=== PATIENT | male | born 1965 | race Caucasian/White ===

== ENCOUNTER 2022-06-13 15:01 | Outpatient (CLI) | payer OTHER | END 2022-06-13 15:02 | disposition home or self-care (01) | LOC: TBSIIMAG 15:01 | PROVIDERS: ATTEND Orthopaedic Surgery | DX: S46.011A Strain of muscle(s) and tendon(s) of the rotator cuff of right shoulder, initial encounter (principal); M19.011 Primary osteoarthritis, right shoulder ==

== ENCOUNTER 2023-11-19 12:08 | Day surgery (SDC) | payer OTHER ==
[2023-11-15 15:27] VITALS: BMI 29.0
[2023-11-19] MEDS ORDERED: Lidocaine 1% PF 5 ML VIAL ONE (14:00)
[2023-11-19] MEDS ORDERED: Ondansetron PF 4 MG/2 ML Vial ONE (14:00)
[2023-11-19] MEDS ORDERED: PROPOFOL 200 MG/20 ML VIAL ONE (14:00)
[2023-11-19] MEDS ORDERED: Dexamethasone 20 MG/5 ML VIAL ONE (14:00)
[2023-11-19 15:12] LABS: Anion Gap 10 mmol/L (10-20); BUN (Urea Nitrogen) 18 mg/dL (8.4-25.7); Calc. Creatinine Clearance 137 mL/min (70-130); Calcium 8.9 mg/dL (7.8-10.44); Carbon Dioxide 25 mmol/L (22-29); Chloride 111 mmol/L (98-107); Estimated GFR 105; Glucose 112 mg/dL (70-105); Potassium 4.5 mmol/L (3.5-5.1); Sodium 141 mmol/L (136-145)
[2023-11-19] MEDS ORDERED: hydrALAZINE 20 MG/ML VIAL ONE (15:28)
== END 2023-11-19 16:21 | disposition home or self-care (01) ==
LOC: MRI 12:08
PROVIDERS: ATTEND Pediatrics
DX: M75.101 Unspecified rotator cuff tear or rupture of right shoulder, not specified as traumatic (principal); I10 Essential (primary) hypertension; F41.9 Anxiety disorder, unspecified; F90.9 Attention-deficit hyperactivity disorder, unspecified type; G47.33 Obstructive sleep apnea (adult) (pediatric); Z79.899 Other long term (current) drug therapy
CPT/HCPCS: 80048; J0360; J1100; J2405; J2704

== ENCOUNTER 2024-05-12 02:17 | Inpatient (IN) | payer OTHER ==
[2024-05-12] MEDS ORDERED: Acetaminophen 650 MG/20.3 ML UDCUP PO PRN (04:40)
[2024-05-12] MEDS ORDERED: Ondansetron PF 4 MG/2 ML Vial IVP PRN ×2 (04:40→19:53)
[2024-05-12] MEDS ORDERED: Ipratropium/Albuterol 3 ML NEB NEB PRN ×2 (04:40→19:53)
[2024-05-12] MEDS ORDERED: Albuterol 2.5 MG (3 mL) NEB NEB PRN (04:40)
[2024-05-12] MEDS ORDERED: Electrolyte Replacement Protocol 1 EACH IVPB PRN (04:40)
[2024-05-12 05:41] VITALS: BMI 29.2
[2024-05-12] MEDS: Sodium Chloride 0.9% 1,000 ML IV SCH (05:42)
[2024-05-12] MEDS: Piperacillin/Tazobactam 3.375 GM in Sodium Chloride 0.9% 100 ML IVPB SCH (05:42)
[2024-05-12] MEDS: methylPREDNISolone Sod Succ 40 MG VIAL IVP SCH (05:43)
[2024-05-12 07:22] LABS: Hematocrit 34.8 % (42.0-52.0); Hemoglobin 12.2 g/dL (14.0-18.0); Mean Corpuscular HGB CONC 35.1 g/dL (32.0-36.0); Mean Corpuscular Hemoglobin 31.9 pg (27.0-31.0); Mean Corpuscular Volume 91.1 fL (78.0-98.0); Mean Platelet Volume 8.7 fL (7.4-10.4); Platelet Count 364 10x3/uL (130-400); RBC Distribution Width 12.4 % (11.5-14.5); Red Blood Cell (RBC) Count 3.82 mill/uL (4.70-6.10)
[2024-05-12 07:41] LABS: Legionella Urinary Ag Negative (Negative); Strep pneumo Urine Ag NEGATIVE (NEGATIVE)
[2024-05-12 07:54] LABS: ALT (SGPT) 16 U/L (8-55); AST (SGOT) 18 U/L (5-34); Albumin 2.3 g/dL (3.5-5.0); Alkaline Phosphatase 106 U/L (40-110); Anion Gap 18 mmol/L (10-20); BUN (Urea Nitrogen) 11 mg/dL (8.4-25.7); Bilirubin, Total 0.5 mg/dL (0.2-1.2); Calc. Creatinine Clearance 173 mL/min (70-130); Calcium 8.7 mg/dL (7.8-10.44); Carbon Dioxide 23 mmol/L (22-29); Chloride 86 mmol/L (98-107); Estimated GFR 111; Globulin 4.1 g/dL (2.4-3.5); Glucose 146 mg/dL (70-105); Phosphorus 3.7 mg/dL (2.3-4.7); Potassium 4.4 mmol/L (3.5-5.1); Protein, Total 6.4 g/dL (6.0-8.3); Sodium 123 mmol/L (136-145)
[2024-05-12 08:03] LABS: Band 4 % (5-11); Burr Cells SLIGHT = 2-5 cells HPF (0-1); Monocytes 2 % (0-10); Neutrophil 93 % (42-75); Platelet Adequacy Comment Platelets Normal; Polychromasia SLIGHT = 2-3 cells HPF (0-2); Reactive Lymphocytes 1 % (0-10); Toxic Granulation SLIGHT; Vacuoles SLIGHT
[2024-05-12] MEDS: Famotidine/PF 20 mg/2ml Vial SLOW IVP SCH ×2 (08:03→09:25)
[2024-05-12] MEDS: Doxycycline 100 MG in Sodium Chloride 0.9% 100 ML IVPB SCH (08:03)
[2024-05-12] MEDS: Enoxaparin 40 MG (0.4 mL) SYRINGE SC SCH (08:03)
[2024-05-12] MEDS ORDERED: Vancomycin 1 GM in Sodium Chloride 0.9% 250 ML 250 ML IVPB SCH (09:00)
[2024-05-12] MEDS: Magnesium 2 GM/50 ML(in water) 2 GM in Premix 1 BAG IVPB SCH (09:28)
[2024-05-12] MEDS: Vancomycin (BATCH) 1.75 GM in Premix 1 BAG IVPB SCH (10:46)
[2024-05-12] MEDS ORDERED: Lidocaine 1% MPF 2 ML VIAL ONE (15:40)
[2024-05-12] MEDS ORDERED: EPINEPHrine 1 MG/ML VIAL ONE (15:41)
[2024-05-12] MEDS ORDERED: Bupivacaine 0.25% HCL 30 ML VIAL ONE ×2 (15:41→16:57)
[2024-05-12] MEDS ORDERED: KETAMINE 100 MG/ML (5ML VIAL) ONE (15:58)
[2024-05-12] MEDS ORDERED: Vasopressin 20 UNITS/ML VIAL ONE (15:59)
[2024-05-12] MEDS ORDERED: fentaNYL PF 100 MCG/2 ML SYRINGE ONE ×2 (16:05→16:59)
[2024-05-12] MEDS ORDERED: Rocuronium Bromide 10 MG/ML (10ML VIAL) ONE ×2 (16:05→18:31)
[2024-05-12] MEDS ORDERED: Dexamethasone 4 mg/ml Vial ONE (16:05)
[2024-05-12] MEDS ORDERED: PROPOFOL 20 ML ONE ×2 (16:05→19:16)
[2024-05-12] MEDS ORDERED: Ondansetron PF 4 MG/2 ML Vial ONE (16:05)
[2024-05-12] MEDS ORDERED: Lidocaine 2% PF 5 ML VIAL ONE (16:05)
[2024-05-12] MEDS ORDERED: ePHEDrine Sulfate 50 MG/10 ML VIAL ONE (16:06)
[2024-05-12] MEDS ORDERED: SUGAMMADEX SODIUM 200 MG/2 ML VIAL ONE (16:06)
[2024-05-12] MEDS ORDERED: PHENYLEPHRINE-NS 100 MCG/ML 10 ML SYRINGE ONE (17:20)
[2024-05-12] MEDS ORDERED: SUCCINYLCHOLINE/SOD CL,ISO/PF 200 MG/10 ML SYRINGE FS ONE (18:50)
[2024-05-12] MEDS ORDERED: HYDROcodone/Acetaminophen 5/325 mg Tablet PO PRN (19:53)
[2024-05-12] MEDS ORDERED: Promethazine HCl 25 MG/ML VIAL IM PRN (19:53)
[2024-05-12 20:13] LABS: Actual Bicarbonate (HCO3a) 21.1 mEq/L (22-28); Calcium, Ionized (arterial) 1.07 mmol/L (1.12-1.30); Carboxyhemoglobin (COHb) 0.1 gm% (0.0-3.0); Hematocrit-ABG 34 % (42.0-52.0); Hemoglobin (Hb) 11.7 g/dL (14.0-18.0); O2 Tension (PaO2), arterial 399.3 mmHg (80.0-100.0); Potassium - ABG Lab 4.21 mmol/L (3.70-5.30); pH, Arterial 7.352 (7.35-7.45)
[2024-05-12 20:14] LABS: Puncture Site LINE
[2024-05-12] MEDS: Fentanyl CADD 100 ML ONE (20:22)
[2024-05-12] MEDS: FLU (Fluarix Triv) TS24-25(6MOS UP)/PF 45 MCG/0.5 ML Syringe IM ONE (20:28)
[2024-05-12] MEDS: Acetaminophen 325 MG TAB PO SCH (20:29)
[2024-05-12] MEDS: Propofol 1,000 MG/100 ML VIAL IV ONE (20:29)
[2024-05-12] MEDS: Gabapentin 300 MG CAP PO SCH (20:30)
[2024-05-12] MEDS ORDERED: Morphine 2 MG/ML VIAL SLOW IVP PRN (20:45)
[2024-05-12] MEDS ORDERED: Fentanyl BOLUS 250 ML IVPB PRN (20:45)
[2024-05-12] MEDS ORDERED: Propofol BOLUS 1,000 MG/100 ML VIAL IV PRN (20:45)
[2024-05-12] MEDS ORDERED: DISCONTINUE PREVIOUS NARCOTIC PAIN MEDICATIONS AND BENZODIAZEPINES FS SCH (20:45)
[2024-05-12] MEDS: Ventilator Sedation Protocol 1 EACH FS ONE (21:03)
[2024-05-12] MEDS: Dexamethasone 4 mg/ml Vial SLOW IVP SCH (21:03)
[2024-05-13] MEDS: Lorazepam 2 MG/ML VIAL SLOW IVP PRN (00:57)
[2024-05-13] MEDS ORDERED: Azithromycin 500 MG in Sodium Chloride 0.9% 250 ML 250 ML IVPB SCH (01:00)
[2024-05-13] MEDS: Phentolamine Mesylate 5 MG VIAL SC SCH (01:37)
[2024-05-13] MEDS: Ketorolac Tromethamine 30 MG (1 mL) VIAL IVP SCH (01:52)
[2024-05-13] MEDS: Propofol 1,000 MG/100 ML VIAL IV PRN (01:53)
[2024-05-13 05:08] LABS: Vancomycin, Random 9.5 ug/mL (See Comment)
[2024-05-13 05:09] LABS: ALT (SGPT) 16 U/L (8-55); AST (SGOT) 27 U/L (5-34); Albumin 1.7 g/dL (3.5-5.0); Alkaline Phosphatase 92 U/L (40-110); Anion Gap 16 mmol/L (10-20); BUN (Urea Nitrogen) 12 mg/dL (8.4-25.7); Bilirubin, Total 0.3 mg/dL (0.2-1.2); Calc. Creatinine Clearance 182 mL/min (70-130); Calcium 8.1 mg/dL (7.8-10.44); Carbon Dioxide 21 mmol/L (22-29); Chloride 95 mmol/L (98-107); Estimated GFR 113; Globulin 3.8 g/dL (2.4-3.5); Glucose 175 mg/dL (70-105); Magnesium 2.3 mg/dL (1.6-2.6); Protein, Total 5.5 g/dL (6.0-8.3); Sodium 128 mmol/L (136-145)
[2024-05-13 05:17] LABS: Hemoglobin 10.2 g/dL (14.0-18.0); Mean Corpuscular Hemoglobin 31.6 pg (27.0-31.0); Mean Corpuscular Volume 92.9 fL (78.0-98.0); Mean Platelet Volume 8.6 fL (7.4-10.4); Platelet Count 444 10x3/uL (130-400); RBC Distribution Width 12.5 % (11.5-14.5); Red Blood Cell (RBC) Count 3.23 mill/uL (4.70-6.10)
[2024-05-13 07:05] LABS: Anisocytosis SLIGHT = 6-15 cells HPF (0-5); Band 4 % (5-11); Lymphocytes 1 % (21-51); Monocytes 4 % (0-10); Neutrophil 91 % (42-75); Platelet Adequacy Comment Significant Decrease; Polychromasia SLIGHT = 2-3 cells HPF (0-2)
[2024-05-13] MEDS: Lidocaine 4% Patch TD SCH (07:55)
[2024-05-13] MEDS: Vancomycin (BATCH) 1.75 GM in Premix 1 BAG IVPB SCH ×2 (10:18→16:47)
[2024-05-13] MEDS: Enoxaparin 40 MG (0.4 mL) SYRINGE SC SCH (10:18)
[2024-05-13] MEDS: NOREPINEPHRINE 8 MG/250 ML-D5W 250 ML IVPB SCH (13:55)
[2024-05-13] MEDS: Fentanyl CADD 100 ML IV SCH (17:11)
[2024-05-13] MEDS: Transdermal Patch Removal TOP SCH (21:13)
[2024-05-14 05:13] LABS: #Basophils Less than 0.03 10x3/uL (0.0-0.2); #Eosinophils Less than 0.03 10x3/uL (0.0-0.7); %Basophils 0.1 % (0.0-1.0); %Lymphocytes 3.9 % (21.0-51.0); %Monocytes 5.1 % (0.0-10.0); %Neutrophils 88.9 % (42.0-75.0); Hematocrit 27.9 % (42.0-52.0); Hemoglobin 9.3 g/dL (14.0-18.0); Mean Corpuscular HGB CONC 33.3 g/dL (32.0-36.0); Mean Corpuscular Hemoglobin 31.4 pg (27.0-31.0); Mean Corpuscular Volume 94.3 fL (78.0-98.0); Mean Platelet Volume 8.9 fL (7.4-10.4); Platelet Count 334 10x3/uL (130-400); RBC Distribution Width 12.6 % (11.5-14.5); Red Blood Cell (RBC) Count 2.96 mill/uL (4.70-6.10)
[2024-05-14 05:35] LABS: Vancomycin, Random 34.4 ug/mL (See Comment)
[2024-05-14 05:47] LABS: ALT (SGPT) 14 U/L (8-55); AST (SGOT) 32 U/L (5-34); Albumin 1.5 g/dL (3.5-5.0); Alkaline Phosphatase 73 U/L (40-110); Anion Gap 11 mmol/L (10-20); BUN (Urea Nitrogen) 14 mg/dL (8.4-25.7); Bilirubin, Total 0.1 mg/dL (0.2-1.2); Calc. Creatinine Clearance 215 mL/min (70-130); Calcium 7.9 mg/dL (7.8-10.44); Carbon Dioxide 23 mmol/L (22-29); Chloride 101 mmol/L (98-107); Estimated GFR 119; Globulin 3.9 g/dL (2.4-3.5); Glucose 166 mg/dL (70-105); Potassium 4.2 mmol/L (3.5-5.1); Protein, Total 5.4 g/dL (6.0-8.3); Sodium 131 mmol/L (136-145)
[2024-05-14] MEDS: Dexmedetomidine In 0.9 % NaCl 100 ML IVPB SCH (08:34)
[2024-05-14] MEDS: VANCOMYCIN 1.25 GM/250 ML BAG 1.25 GM in Premix 1 BAG IVPB SCH (08:50)
[2024-05-14 08:57] LABS: Base Excess (BEa) 1.1 mEq/L (-2.0 to +3.0); CO2 Tension 31.9 mmHg (35.0-45.0); Calcium, Ionized (arterial) 1.13 mmol/L (1.12-1.30); Carboxyhemoglobin (COHb) 0.2 gm% (0.0-3.0); Hematocrit-ABG 31 % (42.0-52.0); Hemoglobin (Hb) 10.7 g/dL (14.0-18.0); O2 Tension (PaO2), arterial 109.6 mmHg (80.0-100.0); Potassium - ABG Lab 3.82 mmol/L (3.70-5.30); pH, Arterial 7.494 (7.35-7.45)
[2024-05-14 08:58] LABS: ALV-art Gradient 135.725 mmHg (0-20); Puncture Site ALINE
[2024-05-14 14:02] VITALS: BMI 28.8
[2024-05-14] MEDS: hydrALAZINE 20 MG/ML VIAL SLOW IVP PRN (22:24)
[2024-05-15 04:24] LABS: #Basophils Less than 0.03 10x3/uL (0.0-0.2); #Eosinophils Less than 0.03 10x3/uL (0.0-0.7); %Basophils 0.2 % (0.0-1.0); %Eosinophils 0.1 % (0.0-10.0); %Lymphocytes 4.8 % (21.0-51.0); %Monocytes 6.7 % (0.0-10.0); %Neutrophils 86.9 % (42.0-75.0); Hematocrit 32.6 % (42.0-52.0); Mean Corpuscular HGB CONC 33.7 g/dL (32.0-36.0); Mean Corpuscular Hemoglobin 31.2 pg (27.0-31.0); Mean Corpuscular Volume 92.4 fL (78.0-98.0); Mean Platelet Volume 8.8 fL (7.4-10.4); Platelet Count 361 10x3/uL (130-400); RBC Distribution Width 12.3 % (11.5-14.5); Red Blood Cell (RBC) Count 3.53 mill/uL (4.70-6.10)
[2024-05-15 04:35] LABS: Vancomycin, Random 31.1 ug/mL (See Comment)
[2024-05-15 04:59] LABS: HIV (1/2) Antibody/Antigen NONREACTIVE (NonReactive); HIV 1/2 INDEX 0.04 S/CO (<1.00)
[2024-05-15 05:11] LABS: ALT (SGPT) 15 U/L (8-55); AST (SGOT) 13 U/L (5-34); Albumin 1.7 g/dL (3.5-5.0); Alkaline Phosphatase 71 U/L (40-110); Anion Gap 9 mmol/L (10-20); BUN (Urea Nitrogen) 16 mg/dL (8.4-25.7); Bilirubin, Total 0.3 mg/dL (0.2-1.2); Calc. Creatinine Clearance 182 mL/min (70-130); Calcium 8.2 mg/dL (7.8-10.44); Carbon Dioxide 25 mmol/L (22-29); Chloride 102 mmol/L (98-107); Estimated GFR 113; Globulin 3.7 g/dL (2.4-3.5); Glucose 162 mg/dL (70-105); Protein, Total 5.4 g/dL (6.0-8.3); Sodium 132 mmol/L (136-145)
[2024-05-15] MEDS: Vancomycin 1 GM in Premix 1 BAG IVPB SCH (08:19)
[2024-05-15] MEDS: Amoxicillin/Potassium Clav 875 MG TAB PO SCH ×2 (10:52→21:05)
[2024-05-15 15:12] LABS: QuantiFERON-TB Gold Plus Indeterminate (Negative)
[2024-05-15] MEDS: Morphine 4 MG/ML VIAL SLOW IVP PRN (21:05)
[2024-05-16 05:37] LABS: #Basophils 0.03 10x3/uL (0.0-0.2); %Basophils 0.2 % (0.0-1.0); %Eosinophils 0.9 % (0.0-10.0); %Lymphocytes 13.1 % (21.0-51.0); %Monocytes 12.8 % (0.0-10.0); %Neutrophils 71.2 % (42.0-75.0); Hemoglobin 11.5 g/dL (14.0-18.0); Mean Corpuscular HGB CONC 33.8 g/dL (32.0-36.0); Mean Corpuscular Hemoglobin 31.6 pg (27.0-31.0); Mean Corpuscular Volume 93.4 fL (78.0-98.0); Mean Platelet Volume 8.4 fL (7.4-10.4); Platelet Count 352 10x3/uL (130-400); RBC Distribution Width 12.5 % (11.5-14.5); Red Blood Cell (RBC) Count 3.64 mill/uL (4.70-6.10)
[2024-05-16 05:51] LABS: Anion Gap 10 mmol/L (10-20); BUN (Urea Nitrogen) 9 mg/dL (8.4-25.7); Calc. Creatinine Clearance 185 mL/min (70-130); Calcium 7.8 mg/dL (7.8-10.44); Carbon Dioxide 26 mmol/L (22-29); Chloride 103 mmol/L (98-107); Estimated GFR 113; Glucose 147 mg/dL (70-105); Potassium 3.3 mmol/L (3.5-5.1); Sodium 136 mmol/L (136-145)
[2024-05-16] MEDS: Potassium Chloride 20 MEQ TAB PO SCH (08:34)
[2024-05-16] MEDS: Cyclobenzaprine 10 MG TAB PO PRN (08:43)
[2024-05-16] MEDS: Atenolol 25 MG TAB PO SCH (08:43)
[2024-05-16] MEDS: HYDROcodone/Acetaminophen 5/325 mg Tablet PO PRN (11:51)
[2024-05-16 11:53] VITALS: BP 167/94; TEMP 97.8
[2024-05-16 16:14] LABS: A. flavus Negative (Neg:<1:1); A. fumigatus Negative (Neg:<1:1); A. niger Negative (Neg:<1:1); Histoplasma Abs, Quant, DID Negative (Neg:<1:1)
== END 2024-05-16 13:10 | disposition home or self-care (01) | DRG 853 ==
LOC: CCU 03:42 → SURG A 05-15 15:48
PROVIDERS: ADMIT Internal Medicine; ATTEND Internal Medicine
PROC: 0B9M8ZX Drainage of Bilateral Lungs, Via Natural or Artificial Opening Endoscopic, Diagnostic (ICD-10-PCS; principal; 2024-05-12)
PROC: 0BCL8ZZ Extirpation of Matter from Left Lung, Via Natural or Artificial Opening Endoscopic (ICD-10-PCS; 2024-05-12)
PROC: 8E0W8CZ Robotic Assisted Procedure of Trunk Region, Via Natural or Artificial Opening Endoscopic (ICD-10-PCS; 2024-05-12)
PROC: 4A133R1 Monitoring of Arterial Saturation, Peripheral, Percutaneous Approach (ICD-10-PCS; 2024-05-12)
PROC: 3E03329 Introduction of Other Anti-infective into Peripheral Vein, Percutaneous Approach (ICD-10-PCS; 2024-05-12)
PROC: 3E033XZ Introduction of Vasopressor into Peripheral Vein, Percutaneous Approach (ICD-10-PCS; 2024-05-12)
PROC: 5A09357 Assistance with Respiratory Ventilation, Less than 24 Consecutive Hours, Continuous Positive Airway Pressure (ICD-10-PCS; 2024-05-12)
DX: A41.9 Sepsis, unspecified organism (principal); J18.9 Pneumonia, unspecified organism; J96.01 Acute respiratory failure with hypoxia; R65.21 Severe sepsis with septic shock; J85.0 Gangrene and necrosis of lung; E87.1 Hypo-osmolality and hyponatremia; I10 Essential (primary) hypertension; E78.5 Hyperlipidemia, unspecified; Z98.890 Other specified postprocedural states; G47.33 Obstructive sleep apnea (adult) (pediatric); Z79.899 Other long term (current) drug therapy; E88.09 Other disorders of plasma-protein metabolism, not elsewhere classified; Z79.82 Long term (current) use of aspirin
CPT/HCPCS: 36415; 71045; 80048; 80053; 80202; 82805; 83735; 84100; 85025; 86480; 86606; 86698; 87040; 87070; 87077; 87081; 87102; 87116; 87186; 87205; 87206; 87389; 87449; 87633; 87899; 94002; 94003; 94660; A4314; J0171; J0360; J0665; J1100; J1642; J1650; J1885; J2060; J2270; J2405; J2543; J2704; J2760; J2919; J3010; J3370; J3475; J3490; J7030; S2900

== ENCOUNTER 2025-02-12 13:43 | Outpatient (CLI) | payer OTHER | END 2025-02-12 13:44 | disposition home or self-care (01) | LOC: RAD 13:43 | PROVIDERS: ATTEND Internal Medicine Critical Care Medicine | DX: R06.00 Dyspnea, unspecified (principal) | CPT/HCPCS: 71046 ==